=== PATIENT | male | born 1940 | race Asian ===

== ENCOUNTER 2017-02-26 06:29 | Day surgery (SDC) | payer OTHER ==
[~2017-02-26] VITALS: Ht 170.2 cm; Wt 68.0 kg
[~2017-02-26 06:29] MED LIST: ALBU8.5H IH; ASPI-1061 PO; BECL8.7A5 IH; CALC-746 PO; FLUT16H NASAL; LEVO500 PO; LISI-661 PO; MONT10TA21 PO; MULT1TAB70 PO; OMEP20 PO; SOLI5 PO; TERA5 PO
[2017-02-26] MEDS ORDERED: SODIUM CHLORIDE 0.9% 1,000 ML IV ONE ×2 (07:00→07:01)
[2017-02-26] MEDS ORDERED: FentaNYL CITRATE-PF 100 MCG/2 ML VIAL ONE (07:35)
[2017-02-26] MEDS ORDERED: MIDAZOLAM HCL 2 MG/2 ML VIAL ONE (07:35)
[2017-02-26] MEDS ORDERED: MethylPREDNISolone SOD SUCC 125 MG/2 ML VIAL IVP ONE (09:00)
[2017-02-26] MEDS ORDERED: MethylPREDNISolone SOD SUCC 125 MG/2 ML VIAL ONE (09:32)
[2017-02-26] MEDS ORDERED: ALBUTEROL SULFATE 2.5 MG/0.5 ML NEB SOLUTION NEB ONE (17:41)
[2017-02-26] MEDS ORDERED: LIDOCAINE HCL 2% 30 ML JELLY TP ONE (17:41)
[2017-02-26] MEDS ORDERED: BENZOCAINE 20% 50 MCG/SPRAY 57 GM TP ONE (17:41)
[2017-02-26] MEDS ORDERED: OXYGEN THERAPY IH SCH (20:00)
== END 2017-02-26 10:45 | disposition home or self-care (01) ==
LOC: SURGERY 06:29
PROVIDERS: ATTEND Internal Medicine Critical Care Medicine
DX: J38.4 Edema of larynx (principal); B37.0 Candidal stomatitis; D71 Functional disorders of polymorphonuclear neutrophils; Z85.46 Personal history of malignant neoplasm of prostate
CPT/HCPCS: 31623; 31624; 36415; 71010; 87015 ×2; 87070; 87101; 87205; 87220; 88108; 88184; 88185; 88312; J2250; J2930; J3010; J7030

== ENCOUNTER 2018-08-21 05:10 | Day surgery (SDC) | payer OTHER ==
[~2018-08-21] VITALS: Ht 167.6 cm; Wt 66.0 kg
[~2018-08-21 05:10] MED LIST changes: -ALBU8.5H IH; +ALBU8.5H8 IH; -ASPI-1061 PO; +ASPI81TA87 PO; -BECL8.7A5 IH; +BECL8.7A7 IH; -CALC-746 PO; +CALC-877 PO; -TERA5 PO; +TERA5CAP12 PO
[2018-08-21] MEDS ORDERED: LIDOCAINE 4% 50 ML SOLUTION TP ONE (05:11)
[2018-08-21] MEDS ORDERED: BENZOCAINE 20% 50 MCG/SPRAY 57 GM TP ONE (05:11)
[2018-08-21] MEDS ORDERED: ALBUTEROL SULFATE 2.5 MG/0.5 ML NEB SOLUTION NEB ONE (05:11)
[2018-08-21] MEDS ORDERED: LIDOCAINE 2% 5 ML JELLY TP ONE (05:11)
[2018-08-21] MEDS ORDERED: SODIUM CHLORIDE 0.9% 1,000 ML IV ONE ×2 (06:00→06:10)
[2018-08-21] MEDS ORDERED: DOCU250C90 PO (07:43)
[2018-08-21] MEDS ORDERED: RANI150T7 PO (07:43)
[2018-08-21] MEDS ORDERED: MOME13HF2 IH (07:43)
[2018-08-21] MEDS ORDERED: DOXY100C PO (07:43)
[2018-08-21] MEDS ORDERED: LISI-662 PO (07:43)
[2018-08-21] MEDS ORDERED: MIDAZOLAM HCL 2 MG/2 ML VIAL ONE (07:48)
[2018-08-21] MEDS ORDERED: FentaNYL CITRATE-PF 100 MCG/2 ML VIAL ONE (07:48)
[2018-08-21] MEDS ORDERED: MethylPREDNISolone SOD SUCC 125 MG/2 ML VIAL ONE (08:42)
[2018-08-21] MEDS ORDERED: MethylPREDNISolone SOD SUCC 125 MG/2 ML VIAL IVP ONE (08:45)
[2018-08-21] MEDS ORDERED: OXYGEN THERAPY IH SCH (20:00)
== END 2018-08-21 10:20 | disposition home or self-care (01) ==
LOC: SURGERY 05:10
PROVIDERS: ATTEND Internal Medicine Critical Care Medicine
DX: J38.4 Edema of larynx (principal); B37.0 Candidal stomatitis; J39.8 Other specified diseases of upper respiratory tract; J47.9 Bronchiectasis, uncomplicated
CPT/HCPCS: 31623; 31624; 71045; 87015; 87070; 87077; 87101; 87186; 87205; 87206; 87220; 88108; 88312; 93005; J2250; J2930; J3010; J7030